=== PATIENT | male | born 1945 | race Caucasian/White ===

== ENCOUNTER 2019-12-25 18:07 | Emergency (ER) | payer MEDICARE, BC ==
[~2019-12-25] VITALS: Ht 177.8 cm; Wt 80.0 kg
[2019-12-25 18:09] VITALS: BP 171/74
[2019-12-25] MEDS ORDERED: TETanus/Pertussis (Acell)/Diphther VAC/PF (Tdap-Adult) 0.5ml syringe IMVAC ONE (18:15)
== END 2019-12-25 18:38 | disposition home or self-care (01) ==
LOC: ER 18:08
DX: S81.831A Puncture wound without foreign body, right lower leg, initial encounter (principal); S81.832A Puncture wound without foreign body, left lower leg, initial encounter; I25.10 Atherosclerotic heart disease of native coronary artery without angina pectoris; I12.9 Hypertensive chronic kidney disease with stage 1 through stage 4 chronic kidney disease, or unspecified chronic kidney disease; N18.9 Chronic kidney disease, unspecified; Z94.0 Kidney transplant status; Z94.4 Liver transplant status; Z98.890 Other specified postprocedural states
CPT/HCPCS: 73590; 90471; 90715; 99283

== ENCOUNTER 2022-12-18 09:13 | Inpatient (IN) | payer MEDICARE, BC ==
[~2022-12-18] VITALS: Ht 172.7 cm; Wt 103.2 kg
[2022-12-18 12:48] LABS: BASOPHILS % (AUTO) 0.8 % (0-1); EOSINOPHILS # (AUTO) 0.1 X10'3 (0-0.9); EOSINOPHILS % (AUTO) 1.9 % (0-6); HEMATOCRIT 41.7 % (42.0-52.0); HEMOGLOBIN 13.7 g/dl (14.0-17.9); LYMPHOCYTES % (AUTO) 23.4 % (21-51); MEAN CORPUSCULAR HEMOGLOBIN 31.2 PG (27.0-31.0); MEAN CORPUSCULAR HGB CONC 32.9 g/dL (33.0-36.5); MEAN CORPUSCULAR VOLUME 94.9 FL (78-98); MEAN PLATELET VOLUME 7.8 FL (7.4-10.4); MONOCYTES # (AUTO) 0.5 X10'3 (0-0.9); MONOCYTES % (AUTO) 12.7 % (2-12); NEUTROPHILS # (AUTO) 2.6 X10'3 (1.8-7.7); NEUTROPHILS % (AUTO) 61.2 % (42-75); PLATELET COUNT 98 X10'3 (140-440); RED CELL DISTRIBUTION WIDTH 16.1 % (11.5-14.5); WHITE BLOOD COUNT 4.3 X10'3 (4.5-11.0)
[2022-12-18 12:56] LABS: ALANINE AMINOTRANSFERASE 20 U/L (12-78); ALBUMIN 3.7 G/DL (3.4-5.0); ALBUMIN/GLOBULIN RATIO 1.2 (1.1-1.5); ALKALINE PHOSPHATASE 82 IU/L (46-116); ANION GAP 7 (8-16); ASPARTATE AMINO TRANSFERASE 22 U/L (10-37); BILIRUBIN,TOTAL 1.1 MG/DL (0.1-1.0); BLOOD UREA NITROGEN 23 MG/DL (7-18); BUN/CREATININE RATIO 17.8 (10.0-20.0); CHLORIDE 108 MMOL/L (99-107); CREATININE 1.29 MG/DL (0.60-1.10); GLUCOSE 128 MG/DL (70-104); POTASSIUM 4.3 MMOL/L (3.5-5.1); SODIUM 140 MMOL/L (135-145); TOTAL CARBON DIOXIDE 25.2 MMOL/L (24-32); TOTAL PROTEIN 6.8 G/DL (6.4-8.2); eGFR 54 ML/MIN
[2022-12-18] MEDS ORDERED: potassium Cl 20 mEq SR tablet PO STA (14:51)
[2022-12-18] MEDS ORDERED: furosemide 10 MG/1 ML 10ml inj IV ONE (14:55)
[2022-12-18] MEDS ORDERED: bisacodyl 10mg suppository rectal RC PRN (15:00)
[2022-12-18] MEDS ORDERED: potassium Cl 40MEQ/1/2NS 520ml 520 ML IV PRN (15:00)
[2022-12-18] MEDS ORDERED: acetaminophen 650mg rectal suppository RC PRN (15:00)
[2022-12-18] MEDS ORDERED: magnesium 4gm in 100ml NS 100 ML IV PRN (15:00)
[2022-12-18] MEDS ORDERED: HYDROcodone/acetaminophen 10/325mg tab PO PRN (15:00)
[2022-12-18] MEDS ORDERED: ipratropium/albuterol 3ml nebule NEB PRN (15:00)
[2022-12-18] MEDS ORDERED: morphine 2 MG/ML inj. syringe IV PRN ×2 (15:00)
[2022-12-18] MEDS ORDERED: diphenhydrAMINE 25mg capsule PO PRN (15:00)
[2022-12-18] MEDS ORDERED: magnesium Cl slow-release 64mg tablet PO PRN (15:00)
[2022-12-18] MEDS ORDERED: PERFLUTREN PROTEIN-A MICROSPHR (Optison) 0.22 MG/ML 3ML VIAL IV ONE (15:00)
[2022-12-18] MEDS ORDERED: potassium Cl 20 mEq SR tablet PO PRN ×2 (15:00)
[2022-12-18] MEDS ORDERED: magnesium hydroxide 30ml (MOM) UD suspension PO PRN (15:00)
[2022-12-18] MEDS ORDERED: ondansetron/PF 4mg/2ml inj IV PRN (15:00)
[2022-12-18] MEDS ORDERED: HYDROcodone/acetaminophen 5mg/325mg tablet PO PRN (15:00)
[2022-12-18] MEDS ORDERED: normal saline 1000ml 1,000 ML IV SCH (15:00)
[2022-12-18] MEDS ORDERED: mag hydrox/Alum hydrox/simeth 30ml oral suspension PO PRN (15:00)
[2022-12-18] MEDS ORDERED: acetaminophen 325mg tablet PO PRN ×2 (15:00)
[2022-12-18 15:30] LABS: HEMOGLOBIN A1C 5.4 % (4.5-6.2)
[2022-12-18 15:54] LABS: CLARITY,URINE CLEAR (Clear); COLOR,URINE YELLOW (Yellow); GLUCOSE, URINE NEGATIVE (Neg); KETONES,URINE NEGATIVE (Neg); LEUKOCYTE ESTERASE ,URINE NEGATIVE (Neg); NITRITES, URINE NEGATIVE (Neg); OCCULT BLOOD,URINE TRACE-INTACT (Neg); PROTEIN,URINE 30 mg/dl (Neg); UROBILINOGEN,URINE 0.2 E.U/dL (0.2-1.0)
[2022-12-18 15:56] LABS: UA COLLECTION TYPE NON-SPECIFIED
[2022-12-18 16:03] LABS: BACTERIA,URINE FEW /HPF (Neg); SQUAMOUS EPITHELIAL CELL,UR FEW /LPF (FEW); WBC,URINE 0-4 /HPF (0-4)
[2022-12-18] MEDS ORDERED: ATOR20TA PO (16:03)
[2022-12-18] MEDS ORDERED: FURO-150 PO (16:03)
[2022-12-18] MEDS ORDERED: APIX5TAB3 PO (16:03)
[2022-12-18] MEDS ORDERED: POTA-206 PO (16:03)
[2022-12-18] MEDS ORDERED: MYCO250C46 PO (16:03)
[2022-12-18] MEDS ORDERED: MAGN400C PO (16:03)
[2022-12-18] MEDS ORDERED: LOP12.5T PO (16:03)
[2022-12-18] MEDS ORDERED: TACR1CAP24 PO (16:03)
[2022-12-18] MEDS ORDERED: AMLO2.5T2 PO (16:03)
[2022-12-18] MEDS ORDERED: TERA5CAP4 PO (16:03)
[2022-12-18] MEDS ORDERED: CALC-723 PO (16:03)
[2022-12-18] MEDS ORDERED: VIT1CAPS46 PO (16:03)
--- NOTE | 2022-12-18 18:19 | NUR ---
Received report from Mikey JACKSON assuming care of pt. Monitor leads on and functioning.
[2022-12-18] MEDS ORDERED: CALCIUM CARBONATE PO SCH (20:00)
[2022-12-18] MEDS: K and/or MAG REPLACEMENT MC SCH (20:00)
[2022-12-18] MEDS ORDERED: VITAMIN D3 PO SCH (20:00)
[2022-12-18] MEDS: ipratropium/albuterol 3ml nebule NEB SCH (21:02)
[2022-12-18] MEDS ORDERED: PERFLUTREN PROTEIN-A MICROSPHR (Optison) 0.22 MG/ML 3ML VIAL IV PRN (21:55)
[2022-12-18] MEDS: furosemide 10 MG/1 ML 10ml inj IV SCH (22:38)
[2022-12-18] MEDS: apixaban 5mg tablet PO SCH (22:38)
[2022-12-18] MEDS: amLODIPine 2.5mg tablet PO SCH (22:43)
[2022-12-18] MEDS: metoprolol tartrate 12.5mg (1/2 tablet) PO SCH (22:44)
[2022-12-18] MEDS: terazosin 5mg capsule PO SCH (22:44)
[2022-12-18] MEDS: mycophenolate mofetil 250mg capsule PO SCH (22:45)
[2022-12-18] MEDS: docusate sod 100mg capsule PO SCH (22:46)
[2022-12-18] MEDS: magnesium oxide 400mg tablet PO SCH (22:47)
[2022-12-18] MEDS: predniSONE 20 mg tablet PO SCH (23:05)
[2022-12-18] MEDS: tacrolimus anhydrous 1mg capsule PO SCH (23:55)
[2022-12-19] MEDS: CefTRIAXone/D5W-Rocephin 1gm 50 ML IV SCH (00:13)
[2022-12-19] MEDS: azithromycin 250mg tablet PO SCH (00:13)
[2022-12-19] MEDS ORDERED: PERFLUTREN PROTEIN-A MICROSPHR (Optison) 0.22 MG/ML 3ML VIAL IV PRN (00:55)
[2022-12-19 01:54] LABS: BASOPHILS % (AUTO) 0.6 % (0-1); EOSINOPHILS # (AUTO) 0.1 X10'3 (0-0.9); EOSINOPHILS % (AUTO) 2.6 % (0-6); HEMATOCRIT 38.8 % (42.0-52.0); HEMOGLOBIN 12.9 g/dl (14.0-17.9); LYMPHOCYTES # (AUTO) 1.4 X10'3 (1.1-4.8); LYMPHOCYTES % (AUTO) 31.7 % (21-51); MEAN CORPUSCULAR HEMOGLOBIN 31.4 PG (27.0-31.0); MEAN CORPUSCULAR HGB CONC 33.2 g/dL (33.0-36.5); MEAN CORPUSCULAR VOLUME 94.5 FL (78-98); MONOCYTES # (AUTO) 0.5 X10'3 (0-0.9); MONOCYTES % (AUTO) 10.1 % (2-12); NEUTROPHILS # (AUTO) 2.5 X10'3 (1.8-7.7); PLATELET COUNT 98 X10'3 (140-440); RED BLOOD COUNT 4.11 X10'6 (4.70-6.10); RED CELL DISTRIBUTION WIDTH 15.8 % (11.5-14.5); WHITE BLOOD COUNT 4.5 X10'3 (4.5-11.0)
[2022-12-19 02:05] LABS: ALANINE AMINOTRANSFERASE 15 U/L (12-78); ALBUMIN 3.3 G/DL (3.4-5.0); ALBUMIN/GLOBULIN RATIO 1.1 (1.1-1.5); ALKALINE PHOSPHATASE 75 IU/L (46-116); ANION GAP 6 (8-16); ASPARTATE AMINO TRANSFERASE 16 U/L (10-37); BILIRUBIN,TOTAL 0.8 MG/DL (0.1-1.0); BLOOD UREA NITROGEN 25 MG/DL (7-18); BUN/CREATININE RATIO 18.8 (10.0-20.0); CALCIUM 8.7 MG/DL (8.5-10.1); CHLORIDE 108 MMOL/L (99-107); CHOL/HDL RATIO 1.9 (0.00-4.99); CHOLESTEROL 117 MG/DL (0-200); CREATININE 1.33 MG/DL (0.60-1.10); GLUCOSE 107 MG/DL (70-104); HDL CHOLESTEROL 62 MG/DL (35-60); LDL CHOLESTEROL 49 MG/DL (50-100); MAGNESIUM 1.8 MG/DL (1.5-2.4); PHOSPHORUS 4.3 MG/DL (2.3-4.5); POTASSIUM 4.2 MMOL/L (3.5-5.1); SODIUM 142 MMOL/L (135-145); TOTAL CARBON DIOXIDE 27.6 MMOL/L (24-32); TOTAL PROTEIN 6.2 G/DL (6.4-8.2); TRIGLYCERIDES 64 MG/DL (20-135); eGFR 52 ML/MIN
[2022-12-19] MEDS: ipratropium/albuterol 3ml nebule NEB SCH ×4 (02:16→19:53)
[2022-12-19 02:37] LABS: D-DIMER 1.22 MG/L FEU (0-0.50)
--- NOTE | 2022-12-19 06:24 | NUR ---
report given gareth alvarenga assuming care
[2022-12-19] MEDS: K and/or MAG REPLACEMENT MC SCH ×2 (08:00→20:00)
[2022-12-19] MEDS: terazosin 5mg capsule PO SCH ×2 (08:00→20:22)
[2022-12-19] MEDS: furosemide 10 MG/1 ML 10ml inj IV SCH (08:13)
[2022-12-19] MEDS: beta-carotene(A) w/C & E + minerals tab PO SCH (08:14)
[2022-12-19] MEDS: docusate sod 100mg capsule PO SCH ×2 (08:14→20:00)
[2022-12-19] MEDS: metoprolol tartrate 12.5mg (1/2 tablet) PO SCH ×2 (08:14→20:22)
[2022-12-19] MEDS: amLODIPine 2.5mg tablet PO SCH ×2 (08:15→20:23)
[2022-12-19] MEDS: magnesium oxide 400mg tablet PO SCH ×3 (08:15→20:26)
[2022-12-19] MEDS: atorvastatin 20mg tablet PO SCH (08:15)
[2022-12-19] MEDS: apixaban 5mg tablet PO SCH ×2 (08:15→20:23)
[2022-12-19] MEDS: mycophenolate mofetil 250mg capsule PO SCH ×2 (08:58→20:21)
[2022-12-19] MEDS: predniSONE 20 mg tablet PO SCH (08:59)
[2022-12-19] MEDS: tacrolimus anhydrous 1mg capsule PO SCH ×2 (09:39→21:48)
[2022-12-19] MEDS ORDERED: terazosin 5mg capsule PO ONE (10:35)
[2022-12-19 12:00] VITALS: BP 154/63
[2022-12-19 15:00] VITALS: BP 122/62
--- NOTE | 2022-12-19 17:33 | NUR ---
Page sent to @ approx [phone] - [id number], requesting timing changes for mycophenolate to be with meals, and tacrolimus must be 1 hour after other meds. Transplant MD gave instructions. May we make timing changes? Please advise. Jennifer Black @[phone].
--- NOTE | 2022-12-19 17:40 | NUR ---
I HAVE RECIEVED REPORT FROM KRISTI SEVILLA. ALL QUESTIONS ANSWERED, I HAVE ASSUMED CARE OF THE PATIENT.
--- NOTE | 2022-12-19 17:50 | NUR ---
AGREE WITH MANAGER AGRICULTURAL PHYSICAL ASSESSMENT EXCEPT WHERE CHANGES MADE.
[2022-12-19 18:00] VITALS: BP 145/51
[2022-12-19] MEDS: furosemide 20 MG/2 ML vial IV SCH (20:21)
[2022-12-19 22:00] VITALS: BP 138/57
[2022-12-20] MEDS: CefTRIAXone/D5W-Rocephin 1gm 50 ML IV SCH (00:17)
[2022-12-20] MEDS: azithromycin 250mg tablet PO SCH (00:17)
[2022-12-20] MEDS: ipratropium/albuterol 3ml nebule NEB SCH ×2 (01:29→07:18)
[2022-12-20 03:00] VITALS: BP 146/68
--- NOTE | 2022-12-20 06:15 | NUR ---
Patient in room PCU 3023. I have received report from Hyacinth JACKSON and had the opportunity to ask questions and assume patient care.
[2022-12-20 07:00] VITALS: BP 144/59
[2022-12-20 07:23] LABS: BASOPHILS % (AUTO) 0.2 % (0-1); EOSINOPHILS % (AUTO) 0.3 % (0-6); HEMATOCRIT 39.9 % (42.0-52.0); LYMPHOCYTES # (AUTO) 1.1 X10'3 (1.1-4.8); MEAN CORPUSCULAR HEMOGLOBIN 31.1 PG (27.0-31.0); MEAN CORPUSCULAR HGB CONC 32.7 g/dL (33.0-36.5); MEAN PLATELET VOLUME 7.9 FL (7.4-10.4); MONOCYTES # (AUTO) 0.6 X10'3 (0-0.9); MONOCYTES % (AUTO) 9.4 % (2-12); NEUTROPHILS # (AUTO) 4.3 X10'3 (1.8-7.7); NEUTROPHILS % (AUTO) 72.1 % (42-75); PLATELET COUNT 100 X10'3 (140-440); RED CELL DISTRIBUTION WIDTH 16.2 % (11.5-14.5); WHITE BLOOD COUNT 5.9 X10'3 (4.5-11.0)
[2022-12-20 07:46] LABS: ALANINE AMINOTRANSFERASE 14 U/L (12-78); ALBUMIN 3.5 G/DL (3.4-5.0); ALBUMIN/GLOBULIN RATIO 1.1 (1.1-1.5); ALKALINE PHOSPHATASE 73 IU/L (46-116); ANION GAP 10 (8-16); ASPARTATE AMINO TRANSFERASE 10 U/L (10-37); BILIRUBIN,TOTAL 0.5 MG/DL (0.1-1.0); BLOOD UREA NITROGEN 34 MG/DL (7-18); BUN/CREATININE RATIO 22.5 (10.0-20.0); CALCIUM 8.9 MG/DL (8.5-10.1); CHLORIDE 107 MMOL/L (99-107); CREATININE 1.51 MG/DL (0.60-1.10); GLUCOSE 115 MG/DL (70-104); MAGNESIUM 2.1 MG/DL (1.5-2.4); PHOSPHORUS 4.5 MG/DL (2.3-4.5); POTASSIUM 3.8 MMOL/L (3.5-5.1); SODIUM 142 MMOL/L (135-145); TOTAL CARBON DIOXIDE 24.6 MMOL/L (24-32); TOTAL PROTEIN 6.6 G/DL (6.4-8.2); eGFR 45 ML/MIN
[2022-12-20] MEDS: furosemide 20 MG/2 ML vial IV SCH (07:47)
[2022-12-20] MEDS: K and/or MAG REPLACEMENT MC SCH (08:00)
[2022-12-20] MEDS: magnesium oxide 400mg tablet PO SCH (08:00)
[2022-12-20] MEDS: docusate sod 100mg capsule PO SCH (08:00)
--- NOTE | 2022-12-20 08:50 | NUR ---
Patient off unit for Lung scan to angio via wheelchair
[2022-12-20] MEDS: predniSONE 20 mg tablet PO SCH (09:29)
[2022-12-20] MEDS: terazosin 5mg capsule PO SCH (09:29)
[2022-12-20] MEDS: beta-carotene(A) w/C & E + minerals tab PO SCH (09:29)
[2022-12-20] MEDS: metoprolol tartrate 12.5mg (1/2 tablet) PO SCH (09:29)
[2022-12-20 09:30] VITALS: BP_SYST 144
[2022-12-20] MEDS: amLODIPine 2.5mg tablet PO SCH (09:30)
[2022-12-20] MEDS: atorvastatin 20mg tablet PO SCH (09:30)
[2022-12-20] MEDS: apixaban 5mg tablet PO SCH (09:30)
[2022-12-20] MEDS: mycophenolate mofetil 250mg capsule PO SCH (09:30)
[2022-12-20] MEDS ORDERED: PRED20TA PO (10:57)
[2022-12-20] MEDS ORDERED: LACT1CAP55 PO (10:57)
[2022-12-20] MEDS ORDERED: FURO-150 PO (10:57)
[2022-12-20] MEDS ORDERED: AZI25OT PO (10:57)
[2022-12-20] MEDS ORDERED: BUDE10.22 INH (10:57)
[2022-12-20] MEDS ORDERED: ALBU90AE INH (10:57)
[2022-12-20] MEDS ORDERED: CEFD300C3 PO (10:57)
[2022-12-20] MEDS: tacrolimus anhydrous 1mg capsule PO SCH (11:17)
--- NOTE | 2022-12-20 13:10 | NUR ---
Patient discharged home. All belongings and discharge instructions sent with patient. IV removed and tele monitor removed and returned to telecommunications support. New RX sent to [facility] in [place].
== END 2022-12-20 13:07 | disposition home or self-care (01) | DRG 189 ==
LOC: ER 09:14 → ED HOLD 15:04 → EDBEDREQ 12-19 00:43 → PCU 3S 12-19 10:18
PROVIDERS: ADMIT Family Medicine; ATTEND Family Medicine
PROC: CB121ZZ Planar Nuclear Medicine Imaging of Lungs and Bronchi using Technetium 99m (Tc-99m) (ICD-10-PCS; principal; 2022-12-20)
DX: J96.20 Acute and chronic respiratory failure, unspecified whether with hypoxia or hypercapnia (principal); J44.1 Chronic obstructive pulmonary disease with (acute) exacerbation; I13.0 Hypertensive heart and chronic kidney disease with heart failure and stage 1 through stage 4 chronic kidney disease, or unspecified chronic kidney disease; Z94.0 Kidney transplant status; Z94.4 Liver transplant status; I50.9 Heart failure, unspecified; I25.10 Atherosclerotic heart disease of native coronary artery without angina pectoris; Z20.822 Contact with and (suspected) exposure to COVID-19; I48.91 Unspecified atrial fibrillation; E78.5 Hyperlipidemia, unspecified; Z91.041 Radiographic dye allergy status; Z79.899 Other long term (current) drug therapy; Z79.01 Long term (current) use of anticoagulants; Z87.891 Personal history of nicotine dependence
CPT/HCPCS: 36415; 71045; 78582; 80053; 80061; 81001; 83036; 83735; 83880; 84100; 84484; 85025; 85379; 87081; 87811; 93005; 93306; 93970; 94640; 94760; 96360; 99285; A4615; A9539; A9540; G0378; J0696; J1940; J7030; J7507; J7512; J7517

== ENCOUNTER 2023-03-08 05:38 | Emergency (ER) | payer MEDICARE, BC ==
[~2023-03-08] VITALS: Ht 172.7 cm; Wt 96.4 kg
[~2023-03-08 05:38] MED LIST: ALBU90AE INH; AMLO2.5T2 PO; APIX5TAB3 PO; ATOR20TA PO; AZI25OT PO; BUDE10.22 INH; CALC-723 PO; FURO-150 PO; LACT1CAP55 PO; LOP12.5T PO; MAGN400C PO; MYCO250C46 PO; POTA-206 PO; PRED20TA PO; TACR1CAP24 PO; TERA5CAP4 PO; VIT1CAPS46 PO
[2023-03-08 07:23] VITALS: BP 154/60
[2023-03-08] MEDS ORDERED: ketorolac tromethamine 15mg/ml inj. IM ONE (08:25)
[2023-03-08] MEDS ORDERED: orphenadrine citrate 60mg/2ml inj. IM ONE (08:25)
[2023-03-08 10:21] LABS: BASOPHILS % (AUTO) 0.5 % (0-1); EOSINOPHILS # (AUTO) 0.2 X10'3 (0-0.9); EOSINOPHILS % (AUTO) 4.5 % (0-6); HEMATOCRIT 38.5 % (42.0-52.0); HEMOGLOBIN 12.7 g/dl (14.0-17.9); LYMPHOCYTES # (AUTO) 1.1 X10'3 (1.1-4.8); LYMPHOCYTES % (AUTO) 29.1 % (21-51); MEAN CORPUSCULAR HEMOGLOBIN 32.2 PG (27.0-31.0); MEAN CORPUSCULAR HGB CONC 32.9 g/dL (33.0-36.5); MEAN CORPUSCULAR VOLUME 97.9 FL (78-98); MEAN PLATELET VOLUME 7.6 FL (7.4-10.4); MONOCYTES # (AUTO) 0.4 X10'3 (0-0.9); MONOCYTES % (AUTO) 10.6 % (2-12); NEUTROPHILS % (AUTO) 55.3 % (42-75); PLATELET COUNT 106 X10'3 (140-440); RED BLOOD COUNT 3.94 X10'6 (4.70-6.10); RED CELL DISTRIBUTION WIDTH 18.3 % (11.5-14.5); WHITE BLOOD COUNT 3.6 X10'3 (4.5-11.0)
[2023-03-08 10:36] LABS: ALANINE AMINOTRANSFERASE 14 U/L (12-78); ALBUMIN 3.8 G/DL (3.4-5.0); ALBUMIN/GLOBULIN RATIO 1.3 (1.1-1.5); ALKALINE PHOSPHATASE 93 IU/L (46-116); ANION GAP 12 (8-16); ASPARTATE AMINO TRANSFERASE 18 U/L (10-37); BILIRUBIN,TOTAL 1.3 MG/DL (0.1-1.0); BLOOD UREA NITROGEN 32 MG/DL (7-18); BUN/CREATININE RATIO 19.8 (10.0-20.0); CALCIUM 9.1 MG/DL (8.5-10.1); CHLORIDE 106 MMOL/L (99-107); CREATININE 1.62 MG/DL (0.60-1.10); GLUCOSE 107 MG/DL (70-104); POTASSIUM 4.8 MMOL/L (3.5-5.1); SODIUM 142 MMOL/L (135-145); TOTAL CARBON DIOXIDE 24.5 MMOL/L (24-32); TOTAL PROTEIN 6.7 G/DL (6.4-8.2); eGFR 42 ML/MIN
[2023-03-08] MEDS ORDERED: HYDR-3965 PO ×2 (10:56→11:09)
[2023-03-08] MEDS ORDERED: CYCL-1 PO (10:56)
== END 2023-03-08 11:11 | disposition home or self-care (01) ==
LOC: ER 05:39
DX: M54.50 Low back pain, unspecified (principal); I12.0 Hypertensive chronic kidney disease with stage 5 chronic kidney disease or end stage renal disease; N18.9 Chronic kidney disease, unspecified; Z91.041 Radiographic dye allergy status
CPT/HCPCS: 36415; 72100; 80053; 85025; 96372; 99284; J1885; J2360

== ENCOUNTER 2023-06-27 14:52 | Inpatient (IN) | payer MEDICARE, BC ==
[~2023-06-27] VITALS: Ht 172.7 cm; Wt 104.0 kg
[~2023-06-27 14:52] MED LIST changes: +CYCL-1 PO
[2023-06-27 15:04] LABS: BASOPHILS % (AUTO) 0.2 % (0-1); EOSINOPHILS % (AUTO) 0.5 % (0-6); HEMATOCRIT 40.6 % (42.0-52.0); HEMOGLOBIN 13.5 g/dl (14.0-17.9); LYMPHOCYTES # (AUTO) 0.7 X10'3 (1.1-4.8); LYMPHOCYTES % (AUTO) 11.1 % (21-51); MEAN CORPUSCULAR HEMOGLOBIN 33.1 PG (27.0-31.0); MEAN CORPUSCULAR HGB CONC 33.3 g/dL (33.0-36.5); MEAN CORPUSCULAR VOLUME 99.5 FL (78-98); MONOCYTES # (AUTO) 0.7 X10'3 (0-0.9); MONOCYTES % (AUTO) 10.2 % (2-12); NEUTROPHILS # (AUTO) 5.2 X10'3 (1.8-7.7); PLATELET COUNT 112 X10'3 (140-440); RED BLOOD COUNT 4.08 X10'6 (4.70-6.10); RED CELL DISTRIBUTION WIDTH 14.9 % (11.5-14.5); WHITE BLOOD COUNT 6.7 X10'3 (4.5-11.0)
[2023-06-27 15:12] VITALS: TEMP 97.9
[2023-06-27 15:30] LABS: ALANINE AMINOTRANSFERASE 23 U/L (12-78); ALBUMIN 3.8 G/DL (3.4-5.0); ALBUMIN/GLOBULIN RATIO 1.2 (1.1-1.5); ALKALINE PHOSPHATASE 91 IU/L (46-116); ANION GAP 12 (8-16); ASPARTATE AMINO TRANSFERASE 20 U/L (10-37); BILIRUBIN,TOTAL 1.3 MG/DL (0.1-1.0); BLOOD UREA NITROGEN 22 MG/DL (7-18); BUN/CREATININE RATIO 16.8 (10.0-20.0); CALCIUM 9.2 MG/DL (8.5-10.1); CHLORIDE 102 MMOL/L (99-107); CREATININE 1.31 MG/DL (0.60-1.10); GLUCOSE 154 MG/DL (70-104); POTASSIUM 4.3 MMOL/L (3.5-5.1); PRO BRAIN NATRIURETIC PEPTIDE 2459 PG/ML (0-450); SODIUM 140 MMOL/L (135-145); eCRCL 46 ML/MIN; eGFR 53 ML/MIN
[2023-06-27] MEDS ORDERED: morphine 4 MG/ML inj SYRINge IV ONE (20:40)
[2023-06-27] MEDS ORDERED: aspirin 325mg tablet, delayed-release (Ecotrin) PO ONE (20:40)
[2023-06-27] MEDS ORDERED: furosemide 10 MG/1 ML 10ml inj IV ONE (21:15)
[2023-06-27] MEDS ORDERED: acetaminophen 325mg tablet PO PRN (21:20)
[2023-06-27] MEDS ORDERED: magnesium Cl slow-release 64mg tablet PO PRN (21:20)
[2023-06-27] MEDS ORDERED: potassium Cl 40MEQ/1/2NS 520ml 520 ML IV PRN (21:20)
[2023-06-27] MEDS ORDERED: mag hydrox/Alum hydrox/simeth 30ml oral suspension PO PRN (21:20)
[2023-06-27] MEDS ORDERED: magnesium hydroxide 30ml (MOM) UD suspension PO PRN (21:20)
[2023-06-27] MEDS ORDERED: magnesium 2GM in 50ml NS 50 ML IV PRN (21:20)
[2023-06-27] MEDS ORDERED: potassium Cl 20 mEq SR tablet PO PRN ×2 (21:20)
[2023-06-27] MEDS ORDERED: morphine 2 MG/ML inj. syringe IV PRN ×2 (21:20)
[2023-06-27] MEDS ORDERED: ondansetron/PF 4mg/2ml inj IV PRN (21:20)
[2023-06-27] MEDS ORDERED: magnesium 4gm in 100ml NS 100 ML IV PRN (21:20)
[2023-06-27] MEDS ORDERED: HYDROcodone/acetaminophen 5mg/325mg tablet PO PRN (21:20)
[2023-06-27] MEDS ORDERED: MAGN400C PO (23:50)
[2023-06-27] MEDS ORDERED: AMLO5TAB PO (23:50)
[2023-06-27] MEDS ORDERED: LOSA50TA64 PO (23:56)
[2023-06-27] MEDS ORDERED: FURO-149 PO (23:56)
[2023-06-27] MEDS ORDERED: ASPI-1071 PO (23:56)
[2023-06-28] VITALS (7 sets, daily range): BP systolic 142–162; BP diastolic 58–75; PULSE 67–83; RESP 22–26; O2SAT 97–100
[2023-06-28] MEDS ORDERED: enoxaparin 40mg/0.4ml syringe SUBCUT SCH (08:00)
[2023-06-28] MEDS ORDERED: furosemide 10 MG/1 ML 10ml inj IV SCH (08:00)
[2023-06-28] MEDS ORDERED: K and/or MAG REPLACEMENT MC SCH (08:00)
[2023-06-28] MEDS ORDERED: docusate sod 100mg capsule PO SCH (08:00)
[2023-06-28] MEDS ORDERED: aminophylline 250mg/10ml inj. IV PRN (08:50)
[2023-06-28] MEDS ORDERED: nitroGLYCERIN 0.4mg SUBLingual tab SL PRN (08:50)
[2023-06-28] MEDS ORDERED: PERFLUTREN PROTEIN-A MICROSPHR (Optison) 0.22 MG/ML 3ML VIAL IV ONE (08:50)
[2023-06-28] MEDS ORDERED: regadenoson 0.4mg/5ml syringe IV PRN (08:50)
[2023-06-28] MEDS ORDERED: metoprolol tartrate 1mg/ml inj IV PRN (08:50)
[2023-06-28 09:00] LABS: BASOPHILS % (AUTO) 0.4 % (0-1); EOSINOPHILS # (AUTO) 0.1 X10'3 (0-0.9); EOSINOPHILS % (AUTO) 1.1 % (0-6); HEMATOCRIT 37.6 % (42.0-52.0); HEMOGLOBIN 12.6 g/dl (14.0-17.9); LYMPHOCYTES # (AUTO) 1.1 X10'3 (1.1-4.8); LYMPHOCYTES % (AUTO) 19.9 % (21-51); MEAN CORPUSCULAR HEMOGLOBIN 33.3 PG (27.0-31.0); MEAN CORPUSCULAR HGB CONC 33.4 g/dL (33.0-36.5); MEAN CORPUSCULAR VOLUME 99.6 FL (78-98); MONOCYTES # (AUTO) 0.6 X10'3 (0-0.9); MONOCYTES % (AUTO) 12.1 % (2-12); NEUTROPHILS # (AUTO) 3.6 X10'3 (1.8-7.7); NEUTROPHILS % (AUTO) 66.5 % (42-75); PLATELET COUNT 101 X10'3 (140-440); RED BLOOD COUNT 3.77 X10'6 (4.70-6.10); WHITE BLOOD COUNT 5.4 X10'3 (4.5-11.0)
[2023-06-28] MEDS ORDERED: mycophenolate mofetil 250mg capsule PO SCH (09:25)
[2023-06-28] MEDS ORDERED: tacrolimus anhydrous 1mg capsule PO SCH (09:25)
[2023-06-28 09:31] LABS: ALANINE AMINOTRANSFERASE 24 U/L (12-78); ALBUMIN 3.4 G/DL (3.4-5.0); ALKALINE PHOSPHATASE 94 IU/L (46-116); ANION GAP 5 (8-16); ASPARTATE AMINO TRANSFERASE 23 U/L (10-37); BILIRUBIN,TOTAL 1.8 MG/DL (0.1-1.0); BLOOD UREA NITROGEN 19 MG/DL (7-18); CALCIUM 8.9 MG/DL (8.5-10.1); CHLORIDE 104 MMOL/L (99-107); CREATININE 1.27 MG/DL (0.60-1.10); GLUCOSE 121 MG/DL (70-104); MAGNESIUM 1.9 MG/DL (1.5-2.4); POTASSIUM 3.9 MMOL/L (3.5-5.1); PRO BRAIN NATRIURETIC PEPTIDE 2280 PG/ML (0-450); SODIUM 139 MMOL/L (135-145); TOTAL PROTEIN 6.8 G/DL (6.4-8.2); eCRCL 48 ML/MIN; eGFR 55 ML/MIN
[2023-06-28] MEDS ORDERED: calcium carbonate/vitamin D3 tablet PO SCH (17:30)
[2023-06-28] MEDS ORDERED: magnesium oxide 400mg tablet PO SCH (18:00)
[2023-06-28] MEDS ORDERED: terazosin 5mg capsule PO SCH (20:00)
[2023-06-28] MEDS ORDERED: potassium Cl 20 mEq SR tablet PO SCH (20:00)
[2023-06-28] MEDS ORDERED: apixaban 5mg tablet PO SCH (20:00)
[2023-06-29] MEDS ORDERED: amLODIPine 5mg tablet PO SCH (08:00)
[2023-06-29] MEDS ORDERED: losartan 50mg tablet PO SCH (08:00)
[2023-06-29] MEDS ORDERED: metoprolol tartrate 12.5mg (1/2 tablet) PO SCH (08:00)
[2023-06-29] MEDS ORDERED: furosemide 40mg tablet PO SCH (08:00)
[2023-06-29] MEDS ORDERED: non-formulary drug (Vit C/E/Zn/Coppr/Lutein/Zeaxan (Preservision Areds 2 Softgel) 1 CAP) PO SCH (08:00)
[2023-06-29] MEDS ORDERED: aspirin 81mg, enteric-coated 1 TAB TABLET.DR PO SCH (08:00)
[2023-06-29] MEDS ORDERED: atorvastatin 20mg tablet PO SCH (08:00)
== END 2023-06-28 16:00 | disposition home or self-care (01) | DRG 204 ==
LOC: ER 14:52 → ED HOLD 21:23 → PCU 3S 06-28 07:41
PROVIDERS: ADMIT Internal Medicine; ATTEND Family Medicine
PROC: 4A02XM4 Measurement of Cardiac Total Activity, External Approach (ICD-10-PCS; principal; 2023-06-28)
PROC: 3E073KZ Introduction of Other Diagnostic Substance into Coronary Artery, Percutaneous Approach (ICD-10-PCS; 2023-06-28)
DX: R07.81 Pleurodynia (principal); Z94.0 Kidney transplant status; I13.0 Hypertensive heart and chronic kidney disease with heart failure and stage 1 through stage 4 chronic kidney disease, or unspecified chronic kidney disease; Z94.4 Liver transplant status; I50.30 Unspecified diastolic (congestive) heart failure; I48.91 Unspecified atrial fibrillation; I25.10 Atherosclerotic heart disease of native coronary artery without angina pectoris; D64.9 Anemia, unspecified; N18.30 Chronic kidney disease, stage 3 unspecified; F10.20 Alcohol dependence, uncomplicated; Z87.891 Personal history of nicotine dependence; Z91.041 Radiographic dye allergy status; Z95.810 Presence of automatic (implantable) cardiac defibrillator; Z85.05 Personal history of malignant neoplasm of liver; I69.398 Other sequelae of cerebral infarction; I25.2 Old myocardial infarction; Z79.01 Long term (current) use of anticoagulants; Z79.899 Other long term (current) drug therapy
CPT/HCPCS: 36415; 71045; 78452; 80053; 83735; 83880; 84484; 85025; 93005; 93017; 93306; 99285; A9500; G0378; J1940; J2270; J2785; J7507; J7517